=== PATIENT | male | born 1950 | race Caucasian/White ===

== ENCOUNTER 2018-02-10 17:12 | Inpatient (IN) | payer MEDICARE, MEDICAID, SELFPAY ==
[2018-02-10 17:25] VITALS: PULSE 56; RESP 18; O2SAT 98; BMI 32.8
[2018-02-10 19:32] VITALS: BP 132/65; PULSE 58; RESP 18; TEMP 36.6; O2SAT 98
[2018-02-10 20:00] VITALS: BP 132/73; PULSE 51; RESP 16; TEMP 36.7; O2SAT 99
--- NOTE | 2018-02-10 20:27 | PCM.HP.STD ---
History of Present Illness Date of Admission: 02/10/18 Chief Complaint: Status post intrathecal pump insertion The patient is a 68 year old M with past medical history of essential hypertension, depression, chronic pain syndrome who has failed conventional oral opiate analgesia, he underwent intrathecal pain pump insertion by today, he is being admitted to the hospital for postoperative care and pain management. When I saw him on the floor he was alert and oriented to time place and person. He denied any focal weakness or paresthesias. He denied any chest pain shortness of breath or palpitations. Past Medical History Allergies No Known Allergies Allergy (Verified 02/10/18 17:49) Home Medications: Ambulatory Orders Medication Instructions Recorded Amlodipine Besylate [Norvasc] 10 mg PO DAILY 02/10/18 Citalopram [Celexa] 20 mg PO DAILY 02/10/18 Cyclobenzaprine [Flexeril] 5 mg PO TID 02/10/18 Docusate Sodium [Colace] 100 mg PO BID 02/10/18 Folic Acid 1 mg PO DAILY@0800 02/10/18 Gabapentin [Neurontin] 600 mg PO TIDCM 02/10/18 Hydromorphone HCl [Dilaudid] 4 mg PO Q8H PRN PRN 02/10/18 Lurasidone HCl [Latuda] 40 mg PO DAILY 02/10/18 Melatonin/Pyridoxine HCl (B6) 3 mg PO 02/10/18 [Melatonin 3 mg Tablet] Meloxicam 15 mg PO DAILY 02/10/18 Tamsulosin HCl [Flomax] 0.4 mg PO DAILY 02/10/18 morphine SR tablet [MS Contin] 30 mg PO Q12H 02/10/18 Smoking Status: Former smoker - *Family History Maternal History Items: No pertinent history Review of Systems Comment: All Systems were reviewed with pertinent positives mentioned in the HPI above. VTE Information - Inpt Only VTE Present on Admission: No VTE Mechan Device Prophylaxis: SCD's VTE Pharm Prophylaxis ordered?: No - Physical Exam General: Alert, Oriented x3 HEENT: Atraumatic Oral: Moist Mucosa Neck: Supple Lungs: Clear to auscultation Cardiovascular: Regular rate, Normal S1, Normal S2 Abdomen: Bowel Sounds Present, Soft, Non Tender Extremities: No edema Musculoskeletal: - - L-spine area is postsurgical Vital Signs Temp Pulse Resp BP Pulse Ox 97.9 F 58 L 18 132/65 H 98 02/10/18 19:32 02/10/18 19:32 02/10/18 19:32 02/10/18 19:32 02/10/18 19:32 Oxygen Delivery Method Room Air Weight: 119 kg Body Mass Index (BMI) 32.8 Assessment/Plan 1. Status post intrathecal pain pump insertion; postoperative and pain management. Dr. Cazares 2. Hypertension; we will resume his home medications. 3. Depression; this is stable on citalopram 4. SCDs for DVT prophylaxis. Code Visit Inpatient E&M: 52476 Init Hosp L2
--- NOTE | 2018-02-10 20:39 | NURSING ---
Dr. Cazares in at bedside at 1955 to initiate intrathecal FILM RENTAL CLERK infusion, Influmorph 1mg/1ml- basal rate set at 0.1mls/hour. This RN reviewed dosage settings with Dr. Cazares.
[2018-02-10 21:00] VITALS: BP 127/69; PULSE 67; RESP 12; TEMP 36.1; O2SAT 99
[2018-02-10 22:00] VITALS: BP 135/83; PULSE 58; RESP 18; TEMP 36.9; O2SAT 97
--- NOTE | 2018-02-10 22:00 | NURSING ---
CLERICAL TRANSCRIBER pump alarming downstream occlusion, storage battery charger trouble shooted CLERICAL TRANSCRIBER pump, CLERICAL TRANSCRIBER pump now infusing.
[2018-02-10] MEDS: Docusate Sodium 100 MG Capsule PO (22:06)
[2018-02-10] MEDS: MELATONIN 3 MG TABLET PO (22:06)
[2018-02-10] MEDS: CYCLOBENZAPRINE HCL 5 MG TABLET PO (22:06)
[2018-02-10 23:00] VITALS: BP 136/81; PULSE 54; RESP 12; TEMP 36.9; O2SAT 96
[2018-02-11] VITALS (20 sets, daily range): BP systolic 116–157; BP diastolic 61–90; PULSE 52–68; RESP 12–18; TEMP 36.6–37.2; O2SAT 95–99
[2018-02-11] MEDS: CYCLOBENZAPRINE HCL 5 MG TABLET PO ×3 (05:53→21:02)
--- NOTE | 2018-02-11 06:08 | NURSING ---
For charting purposes for this shift 7p-7a regarding the intrathecal monitoring assessment, the medication duramorph has been given through out this shift at a basal rate at 0.1mls/hour. Per pharmacy when clarified influmorph and duramorph are both morphine sulfate and both are given at a rate of 1mg/1ml. Per pharmacy at [facility] duramorph is the only medication able to be given intrathecal.
[2018-02-11] MEDS: Folic Acid 1 MG Tablet PO (08:05)
[2018-02-11] MEDS: Tamsulosin HCl 0.4 MG Capsule PO (08:05)
[2018-02-11] MEDS: Gabapentin 600 MG Tablet PO ×3 (08:05→17:55)
--- NOTE | 2018-02-11 09:32 | PCM.PROGNOTE ---
Subjective: Chief complaint: Follow-up after admission for postoperative care and pain management after insertion of intrathecal pump for chronic pain syndrome. Patient seen and examined. No acute events overnight. This morning, he mentioned that his well controlled. It is 7 out of 10 in severity. He denied focal leg weakness, denied numbness or tingling of both legs. Denies chest pain or shortness of breath. His vital signs are stable. I suggested to do routine blood work just to make sure and he refused. - Physical Exam General: Alert, Oriented x3, Cooperative, No apparent distress HEENT: Atraumatic, PERRLA, EOMI, Normocephalic Oral: Moist Mucosa, No Gingival or Mucosal Lesions/ Ulcerations Neck: Supple, No JVD, Negative Carotid Bruits, Trachea Midline, Thyroid Normal Size and Texture Lungs: Clear to auscultation, Normal air movement, No rhonchi, No wheeze, No rales Cardiovascular: Regular rate, Regular Rhythm, Normal S1, Normal S2, No murmurs Abdomen: Bowel Sounds Present, Soft, Non Tender, Non-Distended, No Hepato-splenomegaly Extremities: No clubbing, No cyanosis, No edema Skin: No rashes, No breakdown Lymphatic: No Cervical, Supraclavicular, or Inguinal Adenopathy Neurological: Cranial nerves II-XII grossly intact, Motor Exam 5/5 strength throughout Psych/Mental Status: Normal Affect, Appropriate, Alert and oriented to time, place, person, mood and affect Vital Signs Temp Pulse Resp BP Pulse Ox 98.3 F 57 L 16 121/90 H 98 02/11/18 07:56 02/11/18 07:56 02/11/18 07:56 02/11/18 07:56 02/11/18 07:56 Oxygen Flow Rate (L/min) 2.5 Oxygen Delivery Method Nasal Cannula Weight: 262 lb 5.601 oz Body Mass Index (BMI) 32.8 Intake and Output for Last 24 Hours 02/09/18 02/10/18 02/11/18 23:59 23:59 23:59 Intake Total 500 / 500 250 / 250 Output Total 600 / 600 550 / 550 Balance -100 / -100 -300 / -300 Medical Necessity - Tobacco Use Smoking Status: Former smoker Assessment/Plan This is a 68 years old male patient had intrathecal pump inserted yesterday for chronic back pain and he was admitted for postoperative care and pain control. #1 chronic pain syndrome/chronic back pain/status post intrathecal pain pump insertion: Postoperative day 1. He is on PROPERTIES SUPERVISOR IV morphine as well as Neurontin and Flexeril. Pain is not well controlled, it is 7 out of 10 in severity. His vital signs are stable. No routine blood work performed and he refused to do blood work today. Plan to continue same treatment, Dr. Cazares is managing. #2 hypertension: Blood pressure stable, continue Norvasc. #3 depression: Continue Celexa. #4 benign prostatic hypertrophy: Continue Flomax. #5 DVT prophylaxis: SCDs. This note was generated with [employer] dictation software. It may contain incorrect words, spelling, and punctuation that were not noted in checking the note before signing. Code Visit Inpatient E&M: 20931 Subs Hosp L2
--- NOTE | 2018-02-11 09:38 | PN_ITS ---
Subjective: Chief complaint: Follow-up after admission for postoperative care and pain management after insertion of intrathecal pump for chronic pain syndrome. Patient seen and examined. No acute events overnight. This morning, he mentioned that his well controlled. It is 7 out of 10 in severity. He denied focal leg weakness, denied numbness or tingling of both legs. Denies chest pain or shortness of breath. His vital signs are stable. I suggested to do routine blood work just to make sure and he refused. - Physical Exam General: Alert, Oriented x3, Cooperative, No apparent distress HEENT: Atraumatic, PERRLA, EOMI, Normocephalic Oral: Moist Mucosa, No Gingival or Mucosal Lesions/ Ulcerations Neck: Supple, No JVD, Negative Carotid Bruits, Trachea Midline, Thyroid Normal Size and Texture Lungs: Clear to auscultation, Normal air movement, No rhonchi, No wheeze, No rales Cardiovascular: Regular rate, Regular Rhythm, Normal S1, Normal S2, No murmurs Abdomen: Bowel Sounds Present, Soft, Non Tender, Non-Distended, No Hepato- splenomegaly Extremities: No clubbing, No cyanosis, No edema Skin: No rashes, No breakdown Lymphatic: No Cervical, Supraclavicular, or Inguinal Adenopathy Neurological: Cranial nerves II-XII grossly intact, Motor Exam 5/5 strength throughout Psych/Mental Status: Normal Affect, Appropriate, Alert and oriented to time, place, person, mood and affect Vital Signs Temp Pulse Resp BP Pulse Ox 98.3 F 57 L 16 121/90 H 98 02/11/18 07:56 02/11/18 07:56 02/11/18 07:56 02/11/18 07:56 02/11/18 07:56 Oxygen Flow Rate (L/min) 2.5 Oxygen Delivery Method Nasal Cannula Weight: 262 lb 5.601 oz Body Mass Index (BMI) 32.8 Intake and Output for Last 24 Hours 02/09/18 02/10/18 02/11/18 23:59 23:59 23:59 Intake Total 500 / 500 250 / 250 Output Total 600 / 600 550 / 550 Balance -100 / -100 -300 / -300 Medical Necessity - Tobacco Use Smoking Status: Former smoker Assessment/Plan This is a 68 years old male patient had intrathecal pump inserted yesterday for chronic back pain and he was admitted for postoperative care and pain control. #1 chronic pain syndrome/chronic back pain/status post intrathecal pain pump insertion: Postoperative day 1. He is on ASBESTOS COVERER IV morphine as well as Neurontin and Flexeril. Pain is not well controlled, it is 7 out of 10 in severity. His vital signs are stable. No routine blood work performed and he refused to do blood work today. Plan to continue same treatment, Dr. Cazares is managing. #2 hypertension: Blood pressure stable, continue Norvasc. #3 depression: Continue Celexa. #4 benign prostatic hypertrophy: Continue Flomax. #5 DVT prophylaxis: SCDs. This note was generated with [employer] dictation software. It may contain incorrect words, spelling, and punctuation that were not noted in checking the note before signing. Code Visit Inpatient E&M: 28269 Subs Hosp L2
[2018-02-11] MEDS: Docusate Sodium 100 MG Capsule PO ×2 (10:07→21:01)
[2018-02-11] MEDS: Citalopram 20 MG Tablet PO (10:07)
[2018-02-11] MEDS: amLODIPine 10 MG Tablet PO (10:07)
--- NOTE | 2018-02-11 14:19 | CASEMGMT ---
RN CM Note: Attempted to speak with pt in room. He has been very painful and is sleeping @ this time. Requested we speak tomorrow. -Pt is from [facility] in [place], [place]. Call to Facility, spoke with Kaity, visual merchandising coordinator. Pt's stay is under [facility] benefits and he is under paid bed hold days- bed available on return. She was not sure if [facility] skilled days are available, but can look this up if needed. Update given to LAYTON Enamorado. [facility] PH: FX:
[2018-02-11] MEDS: MELATONIN 3 MG TABLET PO (21:01)
--- NOTE | 2018-02-11 21:09 | NURSING ---
Dr. Cazares came in for Intrathecal Assessment. Pt informed MD that he was 'experiencing withdrawal sx'. Ordered X1 dose of Morphine 2mg PRN. Wound w/ Old dry drainage. Pt stated that 0.1ml/hr was not effective, Dr. Cazares increased Basal dose to 0.2ml/hr. Ordered placed in by this RN, Pharmacy confirmed dose change.
--- NOTE | 2018-02-11 23:05 | NURSING ---
Pt asleep, Q1H vs's wnl's, pulse remains Rolando. Pt is appearing more lethargic but easily awakens. Has intermittent episodes of twitching and apnea; NC w/ 2L continuously. Will continue to monitor.
[2018-02-12] VITALS (21 sets, daily range): BP systolic 115–153; BP diastolic 67–87; PULSE 49–61; RESP 14–20; TEMP 36.6–37.4; O2SAT 95–99
[2018-02-12] MEDS: Morphine 2 MG/ML Syringe IV ×3 (01:41→12:59)
[2018-02-12] MEDS: 0.9% NaCl Peripheral Flush Adult/Peds IV ×2 (01:41→13:00)
--- NOTE | 2018-02-12 03:52 | NURSING ---
Per Dr. Lacy, ordered Vistaril for pt who is currently experiencing restlessness, fine trimmers and increased anxiety. Noted there was a contraindication of Vistaril with pts daily Celexa. Called Pharmacy to confirm and Yemi stated that he wasn't 'too concerned' and that it was ok to give together.
[2018-02-12] MEDS: hydrOXYzine PAM 25 MG Capsule 50 MG PO ×3 (03:57→21:29)
[2018-02-12] MEDS: CYCLOBENZAPRINE HCL 5 MG TABLET PO ×3 (06:20→21:29)
[2018-02-12] MEDS: Folic Acid 1 MG Tablet PO (07:26)
[2018-02-12] MEDS: Gabapentin 600 MG Tablet PO ×3 (07:26→17:09)
[2018-02-12] MEDS: Tamsulosin HCl 0.4 MG Capsule PO (07:36)
--- NOTE | 2018-02-12 09:18 | PCM.PROGNOTE ---
Subjective: Chief complaint: Follow-up after admission for postoperative care and pain management after insertion of intrathecal pump for chronic pain syndrome. Patient seen and examined. No acute events overnight. He mentioned that his back pain is not getting any better, remained at 7 out of 10 in severity. Overnight, there was some issues with the REEL MAN pump that was not working properly. It was restarted this morning by Dr. Cazares. His vital signs are stable. - Physical Exam General: Alert, Oriented x3, Cooperative, No apparent distress HEENT: Atraumatic, PERRLA, EOMI, Normocephalic Oral: Moist Mucosa, No Gingival or Mucosal Lesions/ Ulcerations Neck: Supple, No JVD, Negative Carotid Bruits, Trachea Midline, Thyroid Normal Size and Texture Lungs: Clear to auscultation, Normal air movement, No rhonchi, No wheeze, No rales Cardiovascular: Regular rate, Regular Rhythm, Normal S1, Normal S2, PMI Normal Abdomen: Bowel Sounds Present, Soft, Non Tender, Non-Distended, No Hepato-splenomegaly Extremities: No clubbing, No cyanosis, No edema Skin: No rashes, No breakdown, Incision Lymphatic: No Cervical, Supraclavicular, or Inguinal Adenopathy Neurological: Cranial nerves II-XII grossly intact, Motor Exam 5/5 strength throughout Psych/Mental Status: Normal Affect, Appropriate, Alert and oriented to time, place, person, mood and affect Vital Signs Temp Pulse Resp BP Pulse Ox 97.8 F 56 L 18 120/75 98 02/12/18 08:54 02/12/18 08:54 02/12/18 08:54 02/12/18 08:54 02/12/18 08:54 Oxygen Flow Rate (L/min) 2 Oxygen Delivery Method Nasal Cannula Weight: 262 lb 5.601 oz Body Mass Index (BMI) 32.8 Intake and Output for Last 24 Hours 02/10/18 02/11/18 02/12/18 23:59 23:59 23:59 Intake Total 500 / 500 315 / 315 300 / 300 Output Total 600 / 600 1900 / 1900 100 / 100 Balance -100 / -100 -1585 / -1585 200 / 200 Medical Necessity - Tobacco Use Smoking Status: Former smoker Assessment/Plan This is a 68 years old male patient had intrathecal pump inserted yesterday for chronic back pain and he was admitted for postoperative care and pain control. #1 chronic pain syndrome/chronic back pain/status post intrathecal pain pump insertion: Postoperative day 2. He is on REEL MAN morphine through the intrathecal pump as well as Neurontin and Flexeril. Pain is not well controlled, remained at 7 out of 10 in severity. REEL MAN pump was restarted this morning by Dr. Cazares. his vital signs are stable. No routine blood work performed and he refused to do blood work. Plan to continue same treatment, Dr. Cazares is managing. #2 hypertension: Blood pressure stable, continue Norvasc. #3 depression: Continue Celexa. #4 benign prostatic hypertrophy: Continue Flomax. #5 DVT prophylaxis: SCDs. This note was generated with [employer] dictation software. It may contain incorrect words, spelling, and punctuation that were not noted in checking the note before signing. Code Visit Inpatient E&M: 23168 Subs Hosp L2
--- NOTE | 2018-02-12 09:21 | PN_ITS ---
Subjective: Chief complaint: Follow-up after admission for postoperative care and pain management after insertion of intrathecal pump for chronic pain syndrome. Patient seen and examined. No acute events overnight. He mentioned that his back pain is not getting any better, remained at 7 out of 10 in severity. Overnight, there was some issues with the TOUR CONSULTANT pump that was not working properly. It was restarted this morning by Dr. Cazares. His vital signs are stable. - Physical Exam General: Alert, Oriented x3, Cooperative, No apparent distress HEENT: Atraumatic, PERRLA, EOMI, Normocephalic Oral: Moist Mucosa, No Gingival or Mucosal Lesions/ Ulcerations Neck: Supple, No JVD, Negative Carotid Bruits, Trachea Midline, Thyroid Normal Size and Texture Lungs: Clear to auscultation, Normal air movement, No rhonchi, No wheeze, No rales Cardiovascular: Regular rate, Regular Rhythm, Normal S1, Normal S2, PMI Normal Abdomen: Bowel Sounds Present, Soft, Non Tender, Non-Distended, No Hepato- splenomegaly Extremities: No clubbing, No cyanosis, No edema Skin: No rashes, No breakdown, Incision Lymphatic: No Cervical, Supraclavicular, or Inguinal Adenopathy Neurological: Cranial nerves II-XII grossly intact, Motor Exam 5/5 strength throughout Psych/Mental Status: Normal Affect, Appropriate, Alert and oriented to time, place, person, mood and affect Vital Signs Temp Pulse Resp BP Pulse Ox 97.8 F 56 L 18 120/75 98 02/12/18 08:54 02/12/18 08:54 02/12/18 08:54 02/12/18 08:54 02/12/18 08:54 Oxygen Flow Rate (L/min) 2 Oxygen Delivery Method Nasal Cannula Weight: 262 lb 5.601 oz Body Mass Index (BMI) 32.8 Intake and Output for Last 24 Hours 02/10/18 02/11/18 02/12/18 23:59 23:59 23:59 Intake Total 500 / 500 315 / 315 300 / 300 Output Total 600 / 600 1900 / 1900 100 / 100 Balance -100 / -100 -1585 / -1585 200 / 200 Medical Necessity - Tobacco Use Smoking Status: Former smoker Assessment/Plan This is a 68 years old male patient had intrathecal pump inserted yesterday for chronic back pain and he was admitted for postoperative care and pain control. #1 chronic pain syndrome/chronic back pain/status post intrathecal pain pump insertion: Postoperative day 2. He is on TOUR CONSULTANT morphine through the intrathecal pump as well as Neurontin and Flexeril. Pain is not well controlled, remained at 7 out of 10 in severity. TOUR CONSULTANT pump was restarted this morning by Dr. Cazares. his vital signs are stable. No routine blood work performed and he refused to do blood work. Plan to continue same treatment, Dr. Cazares is managing. #2 hypertension: Blood pressure stable, continue Norvasc. #3 depression: Continue Celexa. #4 benign prostatic hypertrophy: Continue Flomax. #5 DVT prophylaxis: SCDs. This note was generated with [employer] dictation software. It may contain incorrect words, spelling, and punctuation that were not noted in checking the note before signing. Code Visit Inpatient E&M: 95366 Subs Hosp L2
[2018-02-12] MEDS: Citalopram 20 MG Tablet PO (09:24)
[2018-02-12] MEDS: amLODIPine 10 MG Tablet PO (09:24)
[2018-02-12] MEDS: Docusate Sodium 100 MG Capsule PO ×2 (09:24→21:29)
--- NOTE | 2018-02-12 10:05 | NURSING ---
in to see intrathecal catheter with Hayley HOOK, aware of order to give 0.2ml bolus at 10:00. discussed with Luiz clinical pharmacist. discussed policy of no bolus's through family support specialist pump or intrathecal catheter that if Dr. Cazares wanted a bolus he would have to discuss with pharmacy and administer himself. Information give to Hayley Hook and she is calling Dr. Cazares.
[2018-02-12] MEDS: Morphine 4 MG/ML Syringe IM (10:53)
--- NOTE | 2018-02-12 19:30 | NURSING ---
Dr. Cazares in to see pt, Dilaudid intrathecal ARBORIST CLIMBER initiated per MD. Order to change basal dose of Dilaudid ARBORIST CLIMBER from 0.1ml to 0.3ml. ANITHA Purvis verified setting with this nurse. 10ml of Morphine wasted with ANITHA Purvis.
[2018-02-12] MEDS: MELATONIN 3 MG TABLET PO (21:29)
[2018-02-13] VITALS (14 sets, daily range): BP systolic 114–141; BP diastolic 63–83; PULSE 46–56; RESP 14–18; TEMP 36.4–37.4; O2SAT 90–99
[2018-02-13] MEDS: hydrOXYzine PAM 25 MG Capsule 50 MG PO (04:20)
[2018-02-13] MEDS: CYCLOBENZAPRINE HCL 5 MG TABLET PO ×2 (05:37→13:27)
[2018-02-13] MEDS: Folic Acid 1 MG Tablet PO (08:19)
[2018-02-13] MEDS: Tamsulosin HCl 0.4 MG Capsule PO (08:19)
[2018-02-13] MEDS: Gabapentin 600 MG Tablet PO ×3 (08:19→17:47)
--- NOTE | 2018-02-13 10:17 | PCM.PROGNOTE ---
Subjective: Chief complaint: Follow-up after admission for postoperative care and pain management after insertion of intrathecal pump for chronic pain syndrome. Patient seen and examined. No acute events overnight. Today, he mentioned that his pain is still there but it is improving. Denies any other complaints. Vital signs are stable. - Physical Exam General: Alert, Oriented x3, Cooperative, No apparent distress HEENT: Atraumatic, PERRLA, EOMI, Normocephalic Oral: Moist Mucosa, No Gingival or Mucosal Lesions/ Ulcerations Neck: Supple, No JVD, Negative Carotid Bruits, Trachea Midline, Thyroid Normal Size and Texture Lungs: Clear to auscultation, No rhonchi, No wheeze, No rales, Diminished Cardiovascular: Regular rate, Regular Rhythm, Normal S1, Normal S2, PMI Normal Abdomen: Bowel Sounds Present, Soft, Non Tender, Non-Distended, No Hepato-splenomegaly Extremities: No clubbing, No cyanosis, No edema Skin: No rashes, No breakdown Lymphatic: No Cervical, Supraclavicular, or Inguinal Adenopathy Neurological: Cranial nerves II-XII grossly intact, Neuro grossly intact Psych/Mental Status: Normal Affect, Appropriate Vital Signs Temp Pulse Resp BP Pulse Ox 97.5 F L 56 L 16 127/74 H 90 02/13/18 09:20 02/13/18 09:20 02/13/18 09:20 02/13/18 09:20 02/13/18 09:20 Oxygen Flow Rate (L/min) 2 Oxygen Delivery Method Room Air Weight: 262 lb 5.601 oz Body Mass Index (BMI) 32.8 Intake and Output for Last 24 Hours 02/11/18 02/12/18 02/13/18 23:59 23:59 23:59 Intake Total 315 / 315 1999 / 1999 850 / 850 Output Total 1900 / 1900 650 / 650 500 / 500 Balance -1585 / -1585 1350 / 1350 350 / 350 Medical Necessity - Tobacco Use Smoking Status: Former smoker Assessment/Plan This is a 68 years old male patient had intrathecal pump inserted yesterday for chronic back pain and he was admitted for postoperative care and pain control. #1 chronic pain syndrome/chronic back pain/status post intrathecal pain pump insertion: Postoperative day 3. Today, he was switched to PLASTIC BLOCK BOILER RELINER hydromorphone through the intrathecal pump by Dr. Cazares. He reported some improvement of his pain, getting better. Also, he is on Neurontin and Flexeril. His vital signs remained stable. No routine blood work performed and he refused to do blood work. Plan to continue same treatment, Dr. Cazares is managing. #2 hypertension: Blood pressure stable, continue Norvasc. #3 depression: Continue Celexa. #4 benign prostatic hypertrophy: Continue Flomax. #5 DVT prophylaxis: SCDs, start subcu Lovenox.. This note was generated with [employer] dictation software. It may contain incorrect words, spelling, and punctuation that were not noted in checking the note before signing. Code Visit Inpatient E&M: 21172 Subs Hosp L2
--- NOTE | 2018-02-13 10:20 | PN_ITS ---
Subjective: Chief complaint: Follow-up after admission for postoperative care and pain management after insertion of intrathecal pump for chronic pain syndrome. Patient seen and examined. No acute events overnight. Today, he mentioned that his pain is still there but it is improving. Denies any other complaints. Vital signs are stable. - Physical Exam General: Alert, Oriented x3, Cooperative, No apparent distress HEENT: Atraumatic, PERRLA, EOMI, Normocephalic Oral: Moist Mucosa, No Gingival or Mucosal Lesions/ Ulcerations Neck: Supple, No JVD, Negative Carotid Bruits, Trachea Midline, Thyroid Normal Size and Texture Lungs: Clear to auscultation, No rhonchi, No wheeze, No rales, Diminished Cardiovascular: Regular rate, Regular Rhythm, Normal S1, Normal S2, PMI Normal Abdomen: Bowel Sounds Present, Soft, Non Tender, Non-Distended, No Hepato- splenomegaly Extremities: No clubbing, No cyanosis, No edema Skin: No rashes, No breakdown Lymphatic: No Cervical, Supraclavicular, or Inguinal Adenopathy Neurological: Cranial nerves II-XII grossly intact, Neuro grossly intact Psych/Mental Status: Normal Affect, Appropriate Vital Signs Temp Pulse Resp BP Pulse Ox 97.5 F L 56 L 16 127/74 H 90 02/13/18 09:20 02/13/18 09:20 02/13/18 09:20 02/13/18 09:20 02/13/18 09:20 Oxygen Flow Rate (L/min) 2 Oxygen Delivery Method Room Air Weight: 262 lb 5.601 oz Body Mass Index (BMI) 32.8 Intake and Output for Last 24 Hours 02/11/18 02/12/18 02/13/18 23:59 23:59 23:59 Intake Total 315 / 315 1999 / 1999 850 / 850 Output Total 1900 / 1900 650 / 650 500 / 500 Balance -1585 / -1585 1350 / 1350 350 / 350 Medical Necessity - Tobacco Use Smoking Status: Former smoker Assessment/Plan This is a 68 years old male patient had intrathecal pump inserted yesterday for chronic back pain and he was admitted for postoperative care and pain control. #1 chronic pain syndrome/chronic back pain/status post intrathecal pain pump insertion: Postoperative day 3. Today, he was switched to MORTGAGE CONSULTANT hydromorphone through the intrathecal pump by Dr. Cazares. He reported some improvement of his pain, getting better. Also, he is on Neurontin and Flexeril. His vital signs remained stable. No routine blood work performed and he refused to do blood work. Plan to continue same treatment, Dr. Cazares is managing. #2 hypertension: Blood pressure stable, continue Norvasc. #3 depression: Continue Celexa. #4 benign prostatic hypertrophy: Continue Flomax. #5 DVT prophylaxis: SCDs, start subcu Lovenox.. This note was generated with [employer] dictation software. It may contain incorrect words, spelling, and punctuation that were not noted in checking the note before signing. Code Visit Inpatient E&M: 62180 Subs Hosp L2
[2018-02-13] MEDS: Docusate Sodium 100 MG Capsule PO (12:03)
[2018-02-13] MEDS: Citalopram 20 MG Tablet PO (12:03)
[2018-02-13] MEDS: amLODIPine 10 MG Tablet PO (12:03)
--- NOTE | 2018-02-13 14:00 | CASEMGMT ---
Social Work Note LAYTON met with pt. Introduced self and role at [facility]. Pt confirms that he is from [facility] and that his plan is to return there at discharge. Per previous notes, pt has bed holds under his Medicaid and is able to return when medically cleared. Green sheet on pt's chart. LAYTON faxed updated clinicals to [facility]. Plan: Discharge to [facility] when medically cleared Belia Mac RN DOCUMENTATION, BRACE MAKER
--- NOTE | 2018-02-13 16:18 | PCM.TXEXTCAR ---
- Diet 02/10/18 18:18 Diet: Regular Diet Food consistency:: Regular Liquid Consistency:: Regular/Thin Is pt able to select menu?: Yes - Wound(s) Spine Wound Type: intrathecal catheter - Suggestions for Active Care Change Position every (hours): 3 Hours to sit in a chair: 3 Times a day to sit in chair: 3 - Therapies Physical Therapy: Eval and Treat Occupational Therapy: Eval and Treat - Allergies/Procedures Done in Hospital Allergies/Adverse Reactions: Allergies No Known Allergies Allergy (Verified 02/10/18 17:49) - Type of Care/Length of Stay Estimated LOS: Convalescent Care Less Than 30 days Type of Care Needed: Skilled Rehab Potential: Good Prognosis: Good - Additional Orders/Day of Discharge H&P will serve as current which was dated: 02/10/18 Day of Discharge: 02/13/18 - Follow Up Care Primary Care Physician: Onur Bhandari [Primary Care Provider] - Please follow up with your Primary Care Physician in: 2 weeks. Please Follow Up With: Arvin Cazares MD When: call his office.
--- NOTE | 2018-02-14 11:08 | PCM.DC.SUM ---
Discharge Date and Diagnosis Date of Admission: 02/10/18 Date of Discharge: 02/13/18 - Primary Discharge Diagnosis Status post intrathecal pain pump insertion for chronic back pain. Hospital Course and Treatment Operations: None Procedures: - - Insertion of intrathecal pain pump insertion. Summary of Care Provided: The patient is a 68 year old M admitted for pain control after he had intrathecal pain pump inserted for chronic back pain and chronic pain syndrome. The procedure was done by Dr. Cazares. After the insertion of the intrathecal pain pump, patient was admitted, started on morphine TRANSPORTATION TECHNICIAN through the intrathecal pain pump for pain control. This was managed by Dr. Cazares. Initially, his pain did not improve and Dr. Cazares and he was switched to Dilaudid TRANSPORTATION TECHNICIAN through the intrathecal pump. Apart from back pain, patient had no complaints throughout admission. His vital signs remained stable throughout admission. He refused to have blood work done during this hospital stay. With IV Dilaudid TRANSPORTATION TECHNICIAN through the intrathecal pump, patient's back pain improved and Dr. Goss recommended that patient can be discharged back to the correction. Patient discharged to [facility] in a stable medical condition, discharged on the same medication that he was taking before admission without any changes, continued on Dilaudid tablets as well as MS Contin, recommended follow-up with , asked to call his office and recommended follow-up with PCP in 2 weeks. Home Medications: Medications to take at Discharge Amlodipine Besylate [Norvasc] 10 mg PO DAILY 02/10/18 Citalopram [Celexa] 20 mg PO DAILY 02/10/18 Cyclobenzaprine [Flexeril] 5 mg PO TID 02/10/18 Docusate Sodium [Colace] 100 mg PO BID 02/10/18 Folic Acid 1 mg PO DAILY@0800 02/10/18 Gabapentin [Neurontin] 600 mg PO TIDCM 02/10/18 Hydromorphone HCl [Dilaudid] 4 mg PO Q8H PRN PRN 02/10/18 Lurasidone HCl [Latuda] 40 mg PO DAILY 02/10/18 Melatonin/Pyridoxine HCl (B6) [Melatonin 3 mg Tablet] 3 mg PO 02/10/18 Meloxicam 15 mg PO DAILY 02/10/18 Tamsulosin HCl [Flomax] 0.4 mg PO DAILY 02/10/18 morphine SR tablet [Ms Contin] 30 mg PO Q12H 02/10/18 Primary Care Physician: Onur Bhandari [Primary Care Provider] - Please follow up with your Primary Care Physician in: 2 weeks. Please Follow Up With: Arvin Cazares MD When: call his office. Disposition: [facility] facility Minutes spent on discharge:: 26 Patient Condition:: Stable Medical Necessity - Tobacco Use Smoking Status: Former smoker Meaningful Use Info Meaningful Use Diagnoses (Choose all that apply): None applicable Code Visit Please ignore the code visit at the bottom of the progress note on February 13, 2018 and use the code visit at the bottom of the discharge summary on the same date. Inpatient E&M: [id number] Disch Hosp
--- NOTE | 2018-02-14 11:18 | DS.PCM_ITS ---
Discharge Date and Diagnosis Date of Admission: 02/10/18 Date of Discharge: 02/13/18 - Primary Discharge Diagnosis Status post intrathecal pain pump insertion for chronic back pain. Hospital Course and Treatment Operations: None Procedures: - - Insertion of intrathecal pain pump insertion. Summary of Care Provided: The patient is a 68 year old M admitted for pain control after he had intrathecal pain pump inserted for chronic back pain and chronic pain syndrome. The procedure was done by Dr. Cazares. After the insertion of the intrathecal pain pump, patient was admitted, started on morphine BATTERY PLATE ASSEMBLER through the intrathecal pain pump for pain control. This was managed by Dr. Cazares. Initially, his pain did not improve and Dr. Cazares and he was switched to Dilaudid BATTERY PLATE ASSEMBLER through the intrathecal pump. Apart from back pain, patient had no complaints throughout admission. His vital signs remained stable throughout admission. He refused to have blood work done during this hospital stay. With IV Dilaudid BATTERY PLATE ASSEMBLER through the intrathecal pump, patient's back pain improved and Dr. Goss recommended that patient can be discharged back to the intermediate. Patient discharged to intermediate in a stable medical condition, discharged on the same medication that he was taking before admission without any changes, continued on Dilaudid tablets as well as MS Contin, recommended follow-up with , asked to call his office and recommended follow-up with PCP in 2 weeks. Home Medications: Medications to take at Discharge Amlodipine Besylate [Norvasc] 10 mg PO DAILY 02/10/18 Citalopram [Celexa] 20 mg PO DAILY 02/10/18 Cyclobenzaprine [Flexeril] 5 mg PO TID 02/10/18 Docusate Sodium [Colace] 100 mg PO BID 02/10/18 Folic Acid 1 mg PO DAILY@0800 02/10/18 Gabapentin [Neurontin] 600 mg PO TIDCM 02/10/18 Hydromorphone HCl [Dilaudid] 4 mg PO Q8H PRN PRN 02/10/18 Lurasidone HCl [Latuda] 40 mg PO DAILY 02/10/18 Melatonin/Pyridoxine HCl (B6) [Melatonin 3 mg Tablet] 3 mg PO 02/10/18 Meloxicam 15 mg PO DAILY 02/10/18 Tamsulosin HCl [Flomax] 0.4 mg PO DAILY 02/10/18 morphine SR tablet [Ms Contin] 30 mg PO Q12H 02/10/18 Primary Care Physician: Onur Bhandari [Primary Care Provider] - Please follow up with your Primary Care Physician in: 2 weeks. Please Follow Up With: Arvin Cazares MD When: call his office. Disposition: [facility] facility Minutes spent on discharge:: 26 Patient Condition:: Stable Medical Necessity - Tobacco Use Smoking Status: Former smoker Meaningful Use Info Meaningful Use Diagnoses (Choose all that apply): None applicable Code Visit Please ignore the code visit at the bottom of the progress note on February 13, 2018 and use the code visit at the bottom of the discharge summary on the same date. Inpatient E&M: [id number] Disch Hosp
== END 2018-02-13 20:35 | disposition home or self-care (01) | DRG 93 ==
PROVIDERS: Admitting Provider Hospitalist; Family Provider Internal Medicine; PCP Internal Medicine; Visit Provider Anesthesiology Pain Medicine
DX: G89.4 Chronic pain syndrome (principal); I10 Essential (primary) hypertension; F32.9 Major depressive disorder, single episode, unspecified; Z87.891 Personal history of nicotine dependence; N40.0 Benign prostatic hyperplasia without lower urinary tract symptoms; M54.9 Dorsalgia, unspecified
CPT/HCPCS: J7040; A4216; J3490

== ENCOUNTER → 2018-06-25 09:18 | Outpatient (CLI) | payer MEDICARE, SELFPAY | PROVIDERS: Family Provider Internal Medicine; PCP Internal Medicine; Referring Provider Anesthesiology Pain Medicine; Visit Provider Anesthesiology Pain Medicine | DX: Z00.00 Encounter for general adult medical examination without abnormal findings (principal) ==

== ENCOUNTER 2018-06-26 06:24 | Day surgery (SDC) | payer MEDICARE, SELFPAY ==
[2018-06-26] VITALS (8 sets, daily range): BP systolic 111–144; BP diastolic 71–88; PULSE 65–79; RESP 16; TEMP 36.7–37.2; O2SAT 73–96; BMI 33.7
--- NOTE | 2018-06-26 08:20 | RAD_ITS ---
STUDY: X-RAY - LUMBAR SPINE REASON FOR EXAM: Male, 68 years old. Intraoperative fluoroscopic imaging provided for guidance for pain pump insertion. TECHNIQUE: Single lateral coned-down view(s) of the lumbar spine were obtained. COMPARISON: None FINDINGS: Intraoperative imaging provided for placement of the pain pump. RAD/Spine 1 View Any Level IMPRESSION: Fluoroscopic services provided. Electronically Signed: Enoch Fields MD at 13:04 EST Tel [phone], Service support ,
[2018-06-26] MEDS: Cefazolin 2 GM in 0.9% Normal Saline 100 ML IV (08:28)
[2018-06-26] MEDS: Bupiv/Epi 0.5% Mpf 30 ML Vial (09:03)
== END 2018-06-26 13:21 | disposition home or self-care (01) ==
LOC: SDC 06:25 → AC 06:26 → ACINP 08:47
PROVIDERS: Family Provider Internal Medicine; PCP Internal Medicine; Visit Provider Anesthesiology Pain Medicine
PROC: (CPT 62362; principal; 2018-06-26 07:45)
DX: Z45.42 Encounter for adjustment and management of neurostimulator (principal); G89.4 Chronic pain syndrome; Z79.899 Other long term (current) drug therapy; I10 Essential (primary) hypertension; G43.909 Migraine, unspecified, not intractable, without status migrainosus; Z86.73 Personal history of transient ischemic attack (TIA), and cerebral infarction without residual deficits; M54.5 Low back pain; M54.17 Radiculopathy, lumbosacral region; Z79.891 Long term (current) use of opiate analgesic; Z86.19 Personal history of other infectious and parasitic diseases; Z87.891 Personal history of nicotine dependence
CPT/HCPCS: 62362; 72020; 72100; 76000; J7120; J2405; J3490

== ENCOUNTER → 2021-03-08 14:55 | Outpatient (CLI) | payer MEDICARE, MEDICAID, SELFPAY ==
--- NOTE | 2021-03-08 15:01 | RAD_ITS ---
STUDY: X-RAY - LEFT SHOULDER REASON FOR EXAM: Male, 71 years old. SHOULDER PAIN TECHNIQUE: 2 view(s) of the shoulder. COMPARISON: None. FINDINGS: Normal glenohumeral articulation. Normal acromioclavicular joint. Normal acromion. Normal humeral head and visualized proximal humerus. The soft tissue structures are unremarkable. Normal visualized pulmonary apex. RAD/Shoulder min 2 Views IMPRESSION: Normal x-ray examination of the shoulder. Electronically Signed: Enoch Fields MD at 15:26 EDT , Service support ,
--- NOTE | 2021-03-08 15:05 | RAD_ITS ---
STUDY: X-RAY - RIGHT SHOULDER REASON FOR EXAM: Male, 71 years old. SHOULDER PAIN TECHNIQUE: 2 view(s) of the shoulder. COMPARISON: None. FINDINGS: Normal glenohumeral articulation. Normal acromioclavicular joint. Normal acromion. Normal humeral head and visualized proximal humerus. The soft tissue structures are unremarkable. Normal visualized pulmonary apex. RAD/Shoulder min 2 Views IMPRESSION: Normal x-ray examination of the shoulder. Electronically Signed: Enoch Fields MD at 15:26 EDT , Service support ,
== END ==
PROVIDERS: Referring Provider Anesthesiology Pain Medicine; Visit Provider Anesthesiology Pain Medicine
DX: M25.511 Pain in right shoulder (principal); M25.512 Pain in left shoulder
CPT/HCPCS: 73030